=== PATIENT | male | born 1970 | race Caucasian/White ===

== ENCOUNTER 2020-04-28 04:21 | Emergency (ER) | payer SELFPAY ==
[~2020-04-28] VITALS: Ht 165.1 cm; Wt 85.5 kg
--- NOTE | 2020-04-28 04:23 | PHYS DOC ---
Past History Past Medical History: GERD General Adult HPI: HPI: ".. This chest or epigastric pain.. started on night.. about at mid night.. I get GERD.. but.. I did not come in.. because I had lost my insurance....but it not gone away...and worse tonight.. short of breath.. sweaty... " Patient is a 49 year old male who presents with above hx and complaints of chest and epigastric pain. Pain currently in center chest and radiates to left shoulder. Patient rates pain at 8 out of 10. [id number] anti acid meds, Nexium have not helped his pain. Patient denies previous history of cardiac disorder. . Patient does not smoke. Patient does not have a history of hypertension. To his knowledge he has not had elevated cholesterol or lipids. There is a family history of onset of early cardiac disease with grandfather with MS, valve replacement and bypass surgery at age 50. Mother is healthy. No history of recent travel outside the [place] area. No history of trauma. No history of immunosuppression. No history of coagulopathy with him or family members. Patient advised his mother could make medical decisions for him and his case can be discussed with her. Mother informed I was in the process of transferring her son to [facility] for acute MS. She advises she was going to go home and feed his dog - [place]. Review of Systems: Review of Systems: Constitutional: Denies fever or chills Eyes: Denies change in visual acuity HENT: Denies nasal congestion or sore throat Respiratory: Complaints of shortness of breath Cardiovascular: Complaints of chest pain GI: Denies abdominal pain, nausea, vomiting, bloody stools or diarrhea . Complaints of GERD : Denies dysuria Musculoskeletal: Denies back pain or joint pain Integument: Denies rash Neurologic: Denies headache, focal weakness or sensory changes Endocrine: Denies polyuria or polydipsia Lymphatic: Denies swollen glands Psychiatric: Denies depression or anxiety Heart Score: HEART Score for Chest Pain: HEART Score for Chest Pain Response (Comments) Value History Highly Suspicious [address] Depression 2 Age >45 - < 65 1 Risk Factors No Risk Factors 0 Troponin >3 x Normal Limit 2 Total 7 Risk Factors: Risk Factors: DM, Current or recent (<one month) smoker, HTN, HLP, family history of CAD, obesity. Risk Scores: Score 0 - 3: 2.5% MACE over next 6 weeks - Discharge Home Score 4 - 6: 20.3% MACE over next 6 weeks - Admit for Clinical Observation Score 7 - 10: 72.7% MACE over next 6 weeks - Early Invasive Strategies Family History: Family History: Grandfather with cardiac disease-bypass surgery and valve replacement Current Medications: Current Meds: See nursing for home meds Allergies: Allergies: No known drug allergies Physical Exam: PE: Constitutional: in acute distress, non-toxic appearance. [] HENT: Normocephalic, atraumatic, bilateral external ears normal, oropharynx moist, no oral exudates, nose normal. [] Eyes: PERRLA, EOMI, conjunctiva normal, no discharge. [] Neck: Normal range of motion, no tenderness, supple, no stridor. [] Cardiovascular: Bradycardia heart rate regular rhythm, no murmur []. The femoral pulses and radial pulses are equal Lungs & Thorax: Bilateral breath sounds equal at apex with few basilar crackles auscultation []. Chest pain is not reproducible with palpitation. Abdomen: Bowel sounds normal, soft, epigastric tenderness, no masses, no pulsatile masses. [] No history of tarry stools Skin: Warm, diaphoretic, no erythema, no rash. [] Back: No tenderness, no CVA tenderness. [] Extremities: No tenderness, no cyanosis, no clubbing, ROM intact, no edema. [] No cording appreciated. Neurologic: Alert and oriented X 3, normal motor function, normal sensory function, no focal deficits noted. [] Psychologic: Affect anxious, judgement normal, mood normal. [] EKG: EKG: My interpretation of EKG shows a sinus bradycardia rhythm at 58 bpm. Obvious contour abnormality into 3 and aVF consistent with acute MS with contralateral changes . 0426 My interpretation of second EKG at 452 shows sinus bradycardia rhythm at 56. Minimal change and contour abnormalities consistent with acute MS-inferior [] Radiology/Procedures: Radiology/Procedures: [][address] [address] IMAGING REPORT Signed PATIENT: BENJAMIN DAVENPORT ACCOUNT: [id number] : 1970 LOCATION: ER AGE: 49 SEX: M EXAM STATUS: REG ER ORD. PHYSICIAN: KARISSA MALDONADO MD REASON: cp PROCEDURE: CHEST PA & LATERAL EXAM: CHEST PA LATERAL INDICATION: Reason: cp / Spl. Instructions: / History: . TECHNIQUE: PA and lateral views COMPARISON: None FINDINGS: The heart size is normal. The great vessels appear unremarkable. There is no hilar or mediastinal mass. The lungs are clear. There is no pleural effusion or pneumothorax. There are no significant osseous abnormalities. IMPRESSION: No active cardiopulmonary disease. Electronically signed by: Aroldo Pelletier MD (04/28/2020 4:54 AM) [facility] [place]CTATED AND SIGNED BY: AROLDO PELLETIER MD DATE: 04/28/20 0454 CC: KARISSA MALDONADO MD; PCP,NO ~ Course & Med Decision Making: Course & Med Decision Making Pertinent Labs and Imaging studies reviewed. (See chart for details) Patient activated as a STEMI with findings of first EKG. aspirin, nitro paste, Morphiine 2 mg and 4000 units of heparin ordered with drip. Discussed presentation, testing and treatment plan with -hospitalist and Dr. Fisher. Also the emergency department [facility] notified of the transfer of patient to the STEMI lab at [facility]. Emergent transfer by Ambulance was also ordered. Impression: 1. Chest Pain- Acute MS- Consistent Inferior Infarct 2. Accelerated HTN 3. Leukocytosis 12.6 4. Elevated Glucose 139 5. Elevated KAU852/ALT 113 6. CK Elevatede 2887, Trop. 43.848 [] Dragon Disclaimer: Dragon Disclaimer: This electronic medical record was generated, in whole or in part, using a voice recognition dictation system. Departure Departure: Disposition: 01 HOME/RESIDENCE PRIOR TO ADM Condition: STABLE Referrals: PCP,NO (PCP) Justification of Admission: Justification of Admission: Justification of Admission Dx: N/A MS: Acute STEMI Dragon Disclaimer This chart was dictated in whole or in part using Voice Recognition software in a busy, high-work load, and often noisy Emergency Department environment. It may contain unintended and wholly unrecognized errors or omissions. Dragon Disclaimer This chart was dictated in whole or in part using Voice Recognition software in a busy, high-work load, and often noisy Emergency Department environment. It may contain unintended and wholly unrecognized errors or omissions. KARISSA MALDONADO MD Apr 28, 2020 04:23
[2020-04-28] MEDS ORDERED: IV RINGERS SOLUTION,LACTATED 1,000 ML IV SCH (04:30)
--- NOTE | 2020-04-28 04:31 | EKG ---
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
[2020-04-28 04:44] LABS: BASO % 0 % (0-3); EOS % 0 % (0-3); HEMOGLOBIN 17.5 g/dL (13.0-17.5); LYMPH % 8 % (24-48); MEAN CORPUSCULAR HEMOGLOBIN 35 pg (25-35); MEAN CORPUSCULAR HGB CONC 35 g/dL (31-37); MEAN CORPUSCULAR VOLUME 99 fL (79-100); MONO # 1.2 x10^3/uL (0.0-1.1); MONO % 10 % (0-9); NEUT # 10.4 x10^3uL (1.8-7.7); NEUT % 82 % (31-73); PLATELET COUNT 198 x10^3/uL (140-400); RED BLOOD COUNT 5.08 x10^6/uL (4.30-5.70); WHITE BLOOD COUNT 12.6 x10^3/uL (4.0-11.0)
[2020-04-28 04:45] VITALS: BP 163/88
[2020-04-28] MEDS ORDERED: MORPHINE SULFATE 2 MG/ML DISP.SYRIN. IV ONE (04:45)
[2020-04-28] MEDS ORDERED: HEPARIN 25,000UTS/250ML PREMIX 250 ML IV PRN (04:45)
[2020-04-28] MEDS ORDERED: ENOXAPARIN ** NOTE DOSE ** SYRINGE SQ ONE (04:45)
[2020-04-28] MEDS ORDERED: ASPIRIN CHEWABLE 81 MG TABLET. PO ONE (04:45)
[2020-04-28] MEDS ORDERED: HEPARIN for IV BOLUS 10,000 UNIT/10 ML VIAL. IV ONE (04:45)
[2020-04-28] MEDS ORDERED: NITROGLYCERIN OINT 1 GM PACKET. TP ONE (04:45)
[2020-04-28 04:52] LABS: CALCIUM 8.8 mg/dL (8.5-10.1); CREATININE 1.2 mg/dL (0.7-1.3); GFR 64.9; POTASSIUM 4.1 mmol/L (3.5-5.1)
--- NOTE | 2020-04-28 04:56 | RAD ---
EXAM: CHEST PA LATERAL INDICATION: Reason: cp / Spl. Instructions: / History: . TECHNIQUE: PA and lateral views COMPARISON: None FINDINGS: The heart size is normal. The great vessels appear unremarkable. There is no hilar or mediastinal mass. The lungs are clear. There is no pleural effusion or pneumothorax. There are no significant osseous abnormalities. IMPRESSION: No active cardiopulmonary disease. Electronically signed by: Bennett Pelletier MD (04/28/2020 4:54 AM) [facility] [place]
[2020-04-28 05:08] LABS: DIRECT BILIRUBIN 0.5 mg/dL (0.0-0.2); MAGNESIUM 2.4 mg/dL (1.8-2.4); TOTAL PROTEIN 7.8 g/dL (6.4-8.2)
--- NOTE | 2020-04-28 05:46 | EKG ---
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
[2020-04-28 20:22] LABS: THYROID STIM HORMONE (TSH) 2.273 uIU/mL (0.358-3.740)
== END 2020-04-28 05:08 | disposition short-term general hospital (02) ==
LOC: ER 04:21
DX: I21.9 Acute myocardial infarction, unspecified (principal); I10 Essential (primary) hypertension; D72.829 Elevated white blood cell count, unspecified; R73.9 Hyperglycemia, unspecified; R74.8 Abnormal levels of other serum enzymes; K21.9 Gastro-esophageal reflux disease without esophagitis
CPT/HCPCS: 36415; 71046; 80048; 80061; 80076; 82550; 83690; 83735; 83880; 84443; 84484; 85025; 85379; 85610; 85730; 93005; 96365; 96375; 96376; 99285; J1644; J2270; J7120

== ENCOUNTER 2020-05-04 14:08 | Emergency (ER) | payer SELFPAY ==
[~2020-05-04] VITALS: Ht 165.1 cm; Wt 86.0 kg
[2020-05-04] MEDS: IV NORMAL SALINE 1,000ML 1,000 ML IV SCH (14:29)
[2020-05-04 14:30] LABS: BASO # 0.1 x10^3/uL (0.0-0.2); BASO % 1 % (0-3); EOS # 0.2 x10^3/uL (0.0-0.7); EOS % 3 % (0-3); HEMOGLOBIN 15.4 g/dL (13.0-17.5); LYMPH # 1.2 x10^3/uL (1.0-4.8); LYMPH % 18 % (24-48); MEAN CORPUSCULAR HEMOGLOBIN 34 pg (25-35); MEAN CORPUSCULAR HGB CONC 34 g/dL (31-37); MEAN CORPUSCULAR VOLUME 100 fL (79-100); MONO # 0.7 x10^3/uL (0.0-1.1); MONO % 10 % (0-9); NEUT # 4.5 x10^3uL (1.8-7.7); NEUT % 68 % (31-73); PLATELET COUNT 284 x10^3/uL (140-400); RED BLOOD COUNT 4.51 x10^6/uL (4.30-5.70); RED CELL DISTRIBUTION WIDTH 13.5 % (11.5-14.5); WHITE BLOOD COUNT 6.5 x10^3/uL (4.0-11.0)
[2020-05-04] MEDS: ASPIRIN CHEWABLE 81 MG TABLET. PO ONE (14:30)
[2020-05-04 14:36] LABS: CALCIUM 9.2 mg/dL (8.5-10.1); CREATININE 1.4 mg/dL (0.7-1.3); GFR 54.3; POTASSIUM 3.8 mmol/L (3.5-5.1)
--- NOTE | 2020-05-04 14:38 | PHYS DOC ---
Past History Past Medical History: CAD, [place] Past Surgical History: No Surgical History Alcohol Use: None General Adult EDM: Chief Complaint: CHEST PAIN-CARDIAC NATURE HPI: HPI: 49-year-old male presents with chest pain. He had 2 stents placed 6 days ago. He has been doing well until about 90 minutes prior to arrival he started to have a cramping sensation in the right chest radiating into his shoulder blade. This intensified to a 4 out of 10. The patient is diaphoretic, but he states that he is always diaphoretic. Given this pain he decided come to the emergency room. He was not short of breath. On arrival, the patient states that his pain is completely resolved at this time. He denies fever or chills. He has no other complaints at this time. Review of Systems: Review of Systems: Constitutional: Denies fever or chills Eyes: Denies change in visual acuity HENT: Denies nasal congestion or sore throat Respiratory: Denies cough or shortness of breath Cardiovascular: Chest pain GI: Denies abdominal pain, nausea, vomiting, bloody stools or diarrhea : Denies dysuria Musculoskeletal: Denies back pain or joint pain Integument: Denies rash Neurologic: Denies headache, focal weakness or sensory changes Endocrine: Denies polyuria or polydipsia Lymphatic: Denies swollen glands Psychiatric: Denies depression or anxiety Heart Score: HEART Score for Chest Pain: HEART Score for Chest Pain Response (Comments) Value History Moderately Suspicious 1 ECG Nonspecific Repolarizatio 1 Age >45 - < 65 1 Risk Factors >3 Risk Factors or Hx CAD 2 Troponin >1-<3x Normal Limit 1 Total 6 Risk Factors: Risk Factors: DM, Current or recent (<one month) smoker, HTN, HLP, family history of CAD, obesity. Risk Scores: Score 0 - 3: 2.5% MACE over next 6 weeks - Discharge Home Score 4 - 6: 20.3% MACE over next 6 weeks - Admit for Clinical Observation Score 7 - 10: 72.7% MACE over next 6 weeks - Early Invasive Strategies Current Medications: Current Meds: Current Medications Medications (Trade) Dose Ordered Sig/Megha Start Time Stop Time Status Last Admin Dose Admin Aspirin (Aspirin Chewable) 324 mg 1X ONCE 05/04/20 14:30 05/04/20 14:31 DC 05/04/20 14:30 324 MG Sodium Chloride 1,000 ml @ 1,000 mls/hr Q1H 05/04/20 14:18 05/04/20 15:17 05/04/20 14:29 1,000 MLS/HR Allergies: Allergies: Allergies Coded Allergies Type Severity Reaction Last Updated Verified No Known Drug Allergies 05/04/20 No Physical Exam: PE: Constitutional: Well developed, well nourished, no acute distress, non-toxic appearance. [] HENT: Normocephalic, atraumatic, bilateral external ears normal, oropharynx moist, no oral exudates, nose normal. [] Eyes: PERRLA, EOMI, conjunctiva normal, no discharge. [] Neck: Normal range of motion, no tenderness, supple, no stridor. [] Cardiovascular: Heart rate regular rhythm, no murmur [] Lungs & Thorax: Bilateral breath sounds clear to auscultation [] Abdomen: Bowel sounds normal, soft, no tenderness, no masses, no pulsatile masses. [] Skin: Warm, diaphoretic, no erythema, no rash. [] Back: No tenderness, no CVA tenderness. [] Extremities: No tenderness, no cyanosis, no clubbing, ROM intact, no edema. [] Neurologic: Alert and oriented X 3, normal motor function, normal sensory function, no focal deficits noted. [] Psychologic: Affect normal, judgement normal, mood normal. [] Current Patient Data: Labs: Laboratory Tests Test 05/04/20 14:15 White Blood Count 6.5 x10^3/uL (4.0-11.0) Red Blood Count 4.51 x10^6/uL (4.30-5.70) Hemoglobin 15.4 g/dL (13.0-17.5) Hematocrit 45.0 % (39.0-53.0) Mean Corpuscular Volume 100 fL (79-100) Mean Corpuscular Hemoglobin 34 pg (25-35) Mean Corpuscular Hemoglobin Concent 34 g/dL (31-37) Red Cell Distribution Width 13.5 % (11.5-14.5) Platelet Count 284 x10^3/uL (140-400) Neutrophils (%) (Auto) 68 % (31-73) Lymphocytes (%) (Auto) 18 % (24-48) L Monocytes (%) (Auto) 10 % (0-9) H Eosinophils (%) (Auto) 3 % (0-3) Basophils (%) (Auto) 1 % (0-3) Neutrophils # (Auto) 4.5 x10^3uL (1.8-7.7) Lymphocytes # (Auto) 1.2 x10^3/uL (1.0-4.8) Monocytes # (Auto) 0.7 x10^3/uL (0.0-1.1) Eosinophils # (Auto) 0.2 x10^3/uL (0.0-0.7) Basophils # (Auto) 0.1 x10^3/uL (0.0-0.2) Vital Signs: Vital Signs Date Time Temp Pulse Resp B/P (MAP) Pulse Ox O2 Delivery O2 Flow Rate FiO2 05/04/20 14:15 97.8 88 18 139/92 (108) 98 Room Air EKG: EKG: Sinus rhythm, rate 75, normal axis, no ST elevations or depressions, inverted T waves in 2, 3, aVF, V4, V5. [] Radiology/Procedures: Radiology/Procedures: [] Course & Med Decision Making: Course & Med Decision Making Pertinent Labs and Imaging studies reviewed. (See chart for details) Significant for an elevated troponin of 0.9. His EKG does not show ST elevation. I spoke with the banquet captain, Dr. Fisher and he was comfortable with admitting the patient to [place] or [place]. He believes this is likely continued decrease of his very elevated troponin with his recent heart attack. His troponin went up to around 180. Patient is continue to be symptom- free. He does not want to be admitted. I told him admission would be best. He wants to go home and he has an appointment in the morning with his doctor. I negotiated a second troponin after 2 hours. It is slightly lower. The patient understands the risks of going home including . If his pain comes back, he will return to the emergency room. He is stable for discharge at this time. [] Dragon Disclaimer: Dragon Disclaimer: This electronic medical record was generated, in whole or in part, using a voice recognition dictation system. Departure Departure: Impression: Primary Impression: Chest pain Qualified Codes: R07.2 - Precordial pain Disposition: 01 HOME/RESIDENCE PRIOR TO ADM Condition: STABLE Referrals: PCP,NO (PCP) Patient Instructions: Chest Pain Observation Justification of Admission: Justification of Admission: Justification of Admission Dx: N/A MATI LANDRY DO May 04, 2020 14:38
--- NOTE | 2020-05-04 14:42 | EKG ---
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
[2020-05-04 14:48] LABS: ALBUMIN 3.5 g/dL (3.4-5.0); ALBUMIN/GLOBULIN RATIO 0.9 (1.0-1.7); TOTAL BILIRUBIN 0.6 mg/dL (0.2-1.0); TOTAL PROTEIN 7.4 g/dL (6.4-8.2)
--- NOTE | 2020-05-04 14:56 | RAD ---
Single AP view of the chest. Comparison: 04/28/2020. Indication: Chest pain, myocardial infarction week ago Findings: The heart is enlarged but stable. There is no pneumothorax or effusion. No air space or interstitial disease. Impression: 1. No acute cardiopulmonary process. Electronically signed by: Christiano Aquino MD (05/04/2020 2:53 PM) [id number]
[2020-05-04 16:40] VITALS: BP 123/73
== END 2020-05-04 17:07 | disposition home or self-care (01) ==
LOC: ER 14:08
DX: R07.2 Precordial pain (principal); I25.10 Atherosclerotic heart disease of native coronary artery without angina pectoris; I25.2 Old myocardial infarction
CPT/HCPCS: 36415; 71045; 80053; 83880; 84484; 85025; 93005; 99285; J7030

== ENCOUNTER 2021-08-13 09:47 | Inpatient (IN) | payer SELFPAY ==
[~2021-08-13] VITALS: Ht 162.6 cm; Wt 92.3 kg
[2021-08-13] MEDS ORDERED: ASPIRIN CHEWABLE 81 MG TABLET. PO ONE (10:00)
--- NOTE | 2021-08-13 10:09 | RAD ---
AP chest. HISTORY: Short of breath AP view was taken of the chest. Heart is normal in size. There is no pleural effusion. There are no c onfluent infiltrates. IMPRESSION: 1. No acute infiltrates. Electronically signed by: Harry Hunter MD (08/13/2021 10:06 AM) [id number]
--- NOTE | 2021-08-13 10:14 | PHYS DOC ---
Past History Past Medical History: CAD, [place] Past Surgical History: No Surgical History Alcohol Use: None General Adult EDM: Chief Complaint: CHEST PAIN HPI: HPI: 51-year-old male presents with chest pain and shortness of breath. Patient states that he was smoking marijuana with some friends last night, but that it did not feel right. He was able to go sleep. He woke up at 8 AM this morning and felt like he had pain in the bilateral tricep area. This pain radiated up into his chest and he began to feel short of breath and became diaphoretic. He took two baby aspirin and decided to come the emergency room. Patient has two stents from a heart attack 2 years ago. He has not had a stress test or cardiac cath since that time. He is pain-free at this time. Review of Systems: Review of Systems: Constitutional: Denies fever or chills Eyes: Denies change in visual acuity HENT: Denies nasal congestion or sore throat Respiratory: shortness of breath Cardiovascular: Chest pain GI: Denies abdominal pain, nausea, vomiting, bloody stools or diarrhea : Denies dysuria Musculoskeletal: Denies back pain or joint pain Integument: Denies rash Neurologic: Denies headache, focal weakness or sensory changes Endocrine: Denies polyuria or polydipsia Lymphatic: Denies swollen glands Psychiatric: Denies depression or anxiety Current Medications: Current Meds: Current Medications Medications (Trade) Dose Ordered Sig/Megha Start Time Stop Time Status Last Admin Dose Admin Aspirin (Aspirin Chewable) 162 mg 1X ONCE 08/13/21 10:00 08/13/21 10:01 DC Lorazepam (Ativan Inj) 2 mg 1X ONCE 08/13/21 10:00 08/13/21 10:01 DC Allergies: Allergies: Allergies Coded Allergies Type Severity Reaction Last Updated Verified No Known Drug Allergies 05/04/20 No Physical Exam: PE: Constitutional: Well developed, well nourished, mild acute distress, non-toxic appearance. [] HENT: Normocephalic, atraumatic, bilateral external ears normal, oropharynx moist, no oral exudates, nose normal. [] Eyes: PERRLA, EOMI, conjunctiva normal, no discharge. [] Neck: Normal range of motion, no tenderness, supple, no stridor. [] Cardiovascular: Heart rate 100, regular rhythm, no murmur [] Lungs & Thorax: Bilateral breath sounds clear to auscultation [] Abdomen: Bowel sounds normal, soft, no tenderness, no masses, no pulsatile masses. [] Skin: Warm, dry, no erythema, no rash. [] Back: No tenderness, no CVA tenderness. [] Extremities: No tenderness, no cyanosis, no clubbing, ROM intact, no edema. [] Neurologic: Alert and oriented X 3, normal motor function, normal sensory function, no focal deficits noted. [] Psychologic: Affect normal, judgement normal, mood normal. [] Current Patient Data: Labs: Laboratory Tests Test 08/13/21 09:57 Glucose (Fingerstick) 136 mg/dL (70-99) H EKG: EKG: Sinus rhythm, rate one hundred, normal axis, no ST elevation or depression. [] Radiology/Procedures: Radiology/Procedures: [] Impressions: AP chest. HISTORY: Short of breath AP view was taken of the chest. Heart is normal in size. There is no pleural effusion. There are no confluent infiltrates. IMPRESSION: 1. No acute infiltrates. Electronically signed by: Harry Tyler MD (08/13/2021 10:06 AM) [id number] DICTATED AND SIGNED BY: HARRY TYLER MD DATE: 08/13/21 1005 CC: MATI LANDRY DO; PCP,NO ~MTH0 0 Heart Score: C/O Chest Pain: Yes HEART Score for Chest Pain: HEART Score for Chest Pain Response (Comments) Value History Slighlty/Non-Suspicious 0 ECG Nonspecific Repolarizatio 1 Age >45 - < 65 1 Risk Factors >3 Risk Factors or Hx CAD 2 Troponin >3 x Normal Limit 2 Total 6 Risk Factors: Risk Factors: DM, Current or recent (<one month) smoker, HTN, HLP, family history of CAD, obesity. Risk Scores: Score 0 - 3: 2.5% MACE over next 6 weeks - Discharge Home Score 4 - 6: 20.3% MACE over next 6 weeks - Admit for Clinical Observation Score 7 - 10: 72.7% MACE over next 6 weeks - Early Invasive Strategies Course & Med Decision Making: Course & Med Decision Making Pertinent Labs and Imaging studies reviewed. (See chart for details) On arrival the patient was diaphoretic and in mild distress. We gave him two more baby aspirin for a complete dose of aspirin. He was quite shaky and was difficult to get a good EKG. We gave 1 mg of Ativan and this helped significantly. During my interview, he stated he was pain-free. Patient's chest x-ray is negative for acute findings. Her chemistry machine is down so the troponin is by i-STAT. It is 1.10 which is significantly elevated. The pat ient meets criteria for NSTEMI. I will admit the patient to the hospital. Both with Dr. Kearney and he has accepted the patient for admission. I will place the patient on Lovenox treatment. The patient is in agreement with admission. [] Dragon Disclaimer: Dragon Disclaimer: This electronic medical record was generated, in whole or in part, using a voice recognition dictation system. Departure Departure: Impression: Primary Impression: NSTEMI (non-ST elevated myocardial infarction) Disposition: ADMITTED INPATIENT Admitting Physician: Juan Jose Kearney Condition: STABLE Referrals: PCP,HASMUKH (PCP) MATI LANDRY DO Aug 13, 2021 10:14
[2021-08-13 10:23] LABS: POTASSIUM ISTAT 3.8 mmol/L (3.5-5.0)
[2021-08-13 10:25] LABS: BASO # 0.1 x10^3/uL (0.0-0.2); BASO % 1 % (0-3); EOS # 0.2 x10^3/uL (0.0-0.7); EOS % 2 % (0-3); HEMATOCRIT 55.4 % (39.0-53.0); HEMOGLOBIN 18.9 g/dL (13.0-17.5); LYMPH # 3.2 x10^3/uL (1.0-4.8); LYMPH % 38 % (24-48); MEAN CORPUSCULAR HEMOGLOBIN 34 pg (25-35); MEAN CORPUSCULAR HGB CONC 34 g/dL (31-37); MEAN CORPUSCULAR VOLUME 100 fL (79-100); MONO # 1.1 x10^3/uL (0.0-1.1); MONO % 14 % (0-9); NEUT # 3.8 x10^3uL (1.8-7.7); NEUT % 45 % (31-73); PLATELET COUNT 285 x10^3/uL (140-400); RED BLOOD COUNT 5.57 x10^6/uL (4.30-5.70); RED CELL DISTRIBUTION WIDTH 13.3 % (11.5-14.5); WHITE BLOOD COUNT 8.4 x10^3/uL (4.0-11.0)
[2021-08-13] MEDS ORDERED: IV NORMAL SALINE 1,000ML 1,000 ML IV ONE (10:45)
[2021-08-13 11:47] LABS: BACTERIA,URINE 0 /HPF (0-FEW); BILIRUBIN,URINE NEG (NEG); CLARITY,URINE CLEAR; COLOR,URINE YELLOW; GLUCOSE,URINE NEG (NEG); NITRITE,URINE NEG (NEG); RBC,URINE 0 /HPF (0-2); WBC,URINE 0 /HPF (0-4)
[2021-08-13] MEDS ORDERED: ENOXAPARIN ** NOTE DOSE ** SYRINGE SQ ONE ×2 (11:55→12:15)
[2021-08-13] MEDS ORDERED: ACETAMINOPHEN 325 MG TABLET PO PRN (12:00)
[2021-08-13] MEDS ORDERED: MORPHINE SULFATE 2 MG/ML DISP.SYRIN. IVP PRN (12:00)
[2021-08-13] MEDS ORDERED: NITROGLYCERIN SUBLINGUAL 0.4 MG BOTTLE OF 25. SL PRN (12:00)
[2021-08-13] MEDS ORDERED: ONDANSETRON PF 4 MG/2 ML VIAL. IVP PRN (12:00)
[2021-08-13 12:20] LABS: % EOS 1 % (0-5); % LYMPHS 43 % (24-48); % MONOS 8 % (0-10); % SEGS 48 % (35-66); PLT ESTIMATE ADEQUATE (ADEQUATE)
[2021-08-13 13:53] VITALS: BP 95/84
[2021-08-13 15:47] LABS: AMPHETAMINE/METHAMPHETAMINE NEG (NEG); BARBITURATES NEG (NEG); BENZODIAZEPINES NEG (NEG); CANNABINOIDS POS (NEG); COCAINE POS (NEG); METHADONE NEG (NEG); OPIATES NEG (NEG); PHENCYCLIDINE NEG (NEG)
--- NOTE | 2021-08-13 15:53 | PDOC2 ---
CONSULT DOS: DATE: 08/13/21 TIME: 15:53 Reason for Consult: Non-STEMI Referring Physician: Dr. Kearney Chief Complaint Chest pain Source: Chart review, Patient Problem List Problems Medical Problems: (1) NSTEMI (non-ST elevated myocardial infarction) Status: Acute History of Present Illness 51-year-old male with history of coronary artery disease s/p PCI/KIMBERLY to RCA presented with retrosternal chest pressure radiating to both arms and neck associated with mild dyspnea and worse with exertion. He denied any palpitations or syncope. The pain was relieved after he was given aspirin and nitroglycerin in the ED. Past Medical History Coronary artery disease s/p PCI/KIMBERLY to RCA in April 2020 Hypertension Past Surgical History: No pertinent history Family History Hypertension Social History Patient admitted to smoking marijuana and moderate intake of alcohol. He has previous history of cocaine use. Current Medications Current Medications Lorazepam (Ativan Inj) 2 mg 1X ONCE IVP Last administered on 08/13/21at 10:11; Start 08/13/21 at 10:00; Stop 08/13/21 at 10:01; Status DC Aspirin (Aspirin Chewable) 162 mg 1X ONCE PO Last administered on 08/13/21at 10:11; Start 08/13/21 at 10:00; Stop 08/13/21 at 10:01; Status DC Sodium Chloride 1,000 ml @ 1,000 mls/hr 1X ONCE IV Last administered on 08/13at 10:41; Start 08/13/21 at 10:45; Stop 08/13/21 at 11:44; Status DC Enoxaparin Sodium (Lovenox 100mg Syringe) 100 mg 1X ONCE SQ ; Start 08/13/21 at 11:55; Stop 08/13/21 at 11:56; Status DC Ondansetron HCl (Zofran) 4 mg PRN Q4HRS PRN IVP NAUSEA/VOMITING; Start 08/13/21 at 12:00; Stop 08/14/21 at 11:59 Morphine Sulfate (Morphine 2mg Syringe) 2 mg PRN Q2HR PRN IVP PAIN; Start 08/13/21 at 12:00; Stop 08/14/21 at 11:59 Acetaminophen (Tylenol) 650 mg PRN Q4HRS PRN PO FEVER > 100.3'F; Start 08/13/21 at 12:00; Stop 08/14/21 at 11:59 Nitroglycerin (Nitrostat) 0.4 mg PRN Q5MIN PRN SL CHEST PAIN; Start 08/13/21 at 12:00; Stop 08/14/21 at 11:59 Enoxaparin Sodium (Lovenox 100mg Syringe) 90 mg BID SQ ; Start 08/13/21 at 21:00 Enoxaparin Sodium (Lovenox 100mg Syringe) 90 mg 1X ONCE SQ Last administered on 08/13/21at 12:21; Start 08/13/21 at 12:15; Stop 08/13/21 at 12:16; Status DC Allergies: Coded Allergies: No Known Drug Allergies (Unverified , 05/04/20) PSYCHOLOGICAL ROS: No: Hallucinations Eyes: No: Loss of vision HEENT: No: Epistaxis Respiratory: No: Hemoptysis Cardiovascular: yes: Chest Pain Gastrointestinal: No: Vomiting, Diarrhea Neurological: No: Seizures Skin: No: Rash General: Alert, Oriented X3 HEENT: Atraumatic Lungs: Clear to auscultation Heart: Regular rate Abdomen: Soft, No tenderness Extremities: No edema Psych/Mental Status: Mood NL VITALS Vital Signs Date Time Temp Pulse Resp B/P (MAP) Pulse Ox O2 Delivery O2 Flow Rate FiO2 08/13/21 13:53 98.1 97 20 95/84 (88) 95 08/13/21 13:00 Nasal Cannula 2.0 Labs Laboratory Tests Test 08/13/21 09:52 08/13/21 09:57 08/13/21 10:39 08/13/21 11:00 White Blood Count 8.4 x10^3/uL (4.0-11.0) Red Blood Count 5.57 x10^6/uL (4.30-5.70) Hemoglobin 18.9 g/dL (13.0-17.5) Bedside Hemoglobin 19 gm/dL Hematocrit 55.4 % (39.0-53.0) Bedside Hematocrit 56 % Mean Corpuscular Volume 100 fL (79-100) Mean Corpuscular Hemoglobin 34 pg (25-35) Mean Corpuscular Hemoglobin Concent 34 g/dL (31-37) Red Cell Distribution Width 13.3 % (11.5-14.5) Platelet Count 285 x10^3/uL (140-400) Neutrophils (%) (Auto) 45 % (31-73) Lymphocytes (%) (Auto) 38 % (24-48) Monocytes (%) (Auto) 14 % (0-9) Eosinophils (%) (Auto) 2 % (0-3) Basophils (%) (Auto) 1 % (0-3) Neutrophils # (Auto) 3.8 x10^3uL (1.8-7.7) Lymphocytes # (Auto) 3.2 x10^3/uL (1.0-4.8) Monocytes # (Auto) 1.1 x10^3/uL (0.0-1.1) Eosinophils # (Auto) 0.2 x10^3/uL (0.0-0.7) Basophils # (Auto) 0.1 x10^3/uL (0.0-0.2) Segmented Neutrophils % 48 % (35-66) Lymphocytes % 43 % (24-48) Monocytes % 8 % (0-10) Eosinophils % 1 % (0-5) Platelet Estimate Adequate (ADEQUATE) Bedside Sodium 141 mmol/L (135-145) Bedside Potassium 3.8 mmol/L (3.5-5.0) Bedside Chloride 101 mmol/L (98-110) Bedside Total CO2 28 mmol/L (23-32) Anion Gap 17 mmol/L (6-14) Bedside Blood Urea Nitrogen 16 mg/dL (8-26) Bedside Creatinine 1.0 mg/dL (0.5-1.4) Glucose Level 121 mg/dL (60-99) Bedside Ionized Calcium (Catherine) 1.11 mmol/L (1.13-1.32) Bedside Troponin I 1.10 ng/ml (<0.08) Glucose (Fingerstick) 136 mg/dL (70-99) Urine Collection Type Unknown Urine Color Yellow Urine Clarity Clear Urine pH 5.5 Urine Specific [place] 1.020 Urine Protein Neg (NEG-TRACE) Urine Glucose (UA) Neg mg/dL (NEG) Urine Ketones (Stick) Trace mg/dL (NEG) Urine Blood Neg (NEG) Urine Nitrite Neg (NEG) Urine Bilirubin Neg (NEG) Urine Urobilinogen Dipstick 1.0 mg/dL (0.2 mg/dL) Urine Leukocyte Esterase Neg (NEG) Urine RBC 0 /HPF (0-2) Urine WBC 0 /HPF (0-4) Urine Bacteria 0 /HPF (0-FEW) Urine Opiates Screen Neg (NEG) Urine Methadone Screen Neg (NEG) Urine Barbiturates Neg (NEG) Urine Phencyclidine Screen Neg (NEG) Urine Amphetamine/Methamphetamine Neg (NEG) Urine Benzodiazepines Screen Neg (NEG) Urine Cocaine Screen Pos (NEG) Urine Cannabinoids Screen Pos (NEG) Urine Ethyl Alcohol Neg (NEG) SARS-CoV-2 Antigen (Rapid) Negative (NEGATIVE) Test 08/13/21 12:00 08/13/21 15:15 Troponin I High Sensitivity 1683 ng/L (4-75) 2024 ng/L (4-75) Assessment/Plan 1. Acute non-STEMI based on troponin elevations. EKG without acute changes. He is presently chest pain-free. Start heparin infusion per protocol and transfer patient to [facility] for possible cardiac catheterization in the morning. Risks and benefits were explained. 2. Hypertension: Controlled Thank you for your consultation LAURA RIVERA MD Aug 13, 2021 15:53
[2021-08-13 16:00] VITALS: BP 131/84
[2021-08-13 16:08] LABS: ALBUMIN 4.1 g/dL (3.4-5.0); DIRECT BILIRUBIN 0.1 mg/dL (0.0-0.2); TOTAL BILIRUBIN 0.8 mg/dL (0.2-1.0)
--- NOTE | 2021-08-13 16:20 | SSS ---
DATE OF SERVICE: 08/13/2021 ADMIT DATE: 08/13/2021 HISTORY OF PRESENT ILLNESS: The patient is a 51-year-old male patient who presented to the Emergency Room of [facility] with a complaint of chest pain and shortness of breath. He woke up at around 8:00 and around 8:30, he was smoking marijuana with some friends last night, but did not feel right. He was able to go to sleep and he woke up around 8:00 a.m. this morning and felt like he had pain in the bilateral triceps area. This pain radiated up into his chest and he began to feel short of breath and became diaphoretic. He took 2 baby aspirin and decided to come to the Emergency Room. He rated his pain around about 8/10 in severity. It lasted till he arrived to the Emergency Room where he was investigated. He had an EKG that did not show any ST segment elevation and his first set of cardiac enzymes showed troponin to be 1.1. The troponin I high sensitivity was 1683. He was started on Lovenox and given morphine as well as nitroglycerin as well as aspirin and he did actually very well and his pain has completely subsided as well as the diaphoresis and shortness of breath. PAST MEDICAL HISTORY: Significant for coronary artery disease status post myocardial infarction, status post stent deployment x 2. He is also known to have hypertension. PAST SURGICAL HISTORY: Significant for coronary angioplasty and stent deployment. ALLERGIES: He has no known drug allergies. MEDICATIONS: Unknown to him and we are contacting the [facility]. Apparently, he is on metoprolol, omeprazole, prasugrel and atorvastatin. FAMILY HISTORY: He has one brother who is younger and has hypertension and nephrolithiasis. Father in his 40s due to esophageal cancer. Mother is still alive at age of 67 and has lung disease. SOCIAL HISTORY: He is single, never , has no children. Smokes marijuana. Drinks alcohol 3 times a week. Works at the [employer]. REVIEW OF SYSTEMS: As per history of present illness. PHYSICAL EXAMINATION: GENERAL: On arrival to the Emergency Room, he was somewhat tachypneic, tachycardic, but there is no pallor, jaundice, cyanosis, no lymphadenopathy, no thyromegaly, no jugular venous distention. No lower limb edema. HEAD, EYES, EARS, NOSE, AND THROAT: Normocephalic, atraumatic. NECK: Supple. HEART: Normal first and second heart sounds. No gallop, rub or murmur. CHEST: Clear to auscultation. No crepitation or rhonchi. ABDOMEN: Distended, soft, nontender. NEUROLOGIC: He was grossly intact. LABORATORY DATA: Showed his white cell count was 8400, hemoglobin 18.9, hematocrit 55, MCV 100 and platelet count of 285,000 with a manual differential showed 45% polymorphs, 38% lymphocytes, 14% monocytes. His chemistry showed a serum sodium 141, potassium 3.8, chloride 101, bicarbonate 28, anion gap of 17, BUN 16, creatinine 1, glucose was 121. Ionized calcium was 1.11. Troponin I was 1.1. The second troponin with high sensitivity was 1683. His toxic screen was positive for cocaine and cannabinoids. His urinalysis essentially unremarkable and his coronavirus rapid testing was negative. His chest x-ray was unremarkable. ASSESSMENT AND PLAN: The patient was transferred to [facility] with diagnosis of non-ST segment elevation myocardial infarction, previous history of coronary artery disease status post angioplasty and stent deployment as well as hypertension and hyperlipidemia. KYLE/TANIA DR: Reginald TID: [id number]
--- NOTE | 2021-08-13 20:50 | EKG ---
[address] [address] Test Date: 2021-08-13 Test Time: 09:52:18 Pat Name: BENJAMIN DAVENPORT Department: Room: 113 A Gender: M Engineering Executive: EMMA : [id number] Requested By: MATI LANDRY Order Number: [id number] Reading MD: Puma Fisher MD Measurements Intervals [place] Rate: 100 P: 44 OK: 128 QRS: 22 QRSD: 94 T: 133 QT: 358 QTc: 465 Interpretive Statements SINUS RHYTHM LEFT ATRIAL ABNORMALITY LVH WITH REPOLARIZATION ABNORMALITY QRS(T) CONTOUR ABNORMALITY CONSISTENT WITH INFERIOR INFARCT PROBABLY OLD ABNORMAL ECG Electronically Signed On 08-14-2021 8:57:55 GLASS TECHNICIAN/INSTALLER by Puma Fisher MD
[2021-08-13] MEDS ORDERED: ENOXAPARIN ** NOTE DOSE ** SYRINGE SQ SCH (21:00)
== END 2021-08-13 16:20 | disposition short-term general hospital (02) | DRG 282 ==
LOC: ER 09:47 → 1 SOUTH 11:49
PROVIDERS: ADMIT Internal Medicine; ATTEND Internal Medicine
DX: I21.4 Non-ST elevation (NSTEMI) myocardial infarction (principal); I25.2 Old myocardial infarction; F12.90 Cannabis use, unspecified, uncomplicated; E78.5 Hyperlipidemia, unspecified; I10 Essential (primary) hypertension; I25.10 Atherosclerotic heart disease of native coronary artery without angina pectoris; F14.90 Cocaine use, unspecified, uncomplicated; Z95.5 Presence of coronary angioplasty implant and graft; Z82.49 Family history of ischemic heart disease and other diseases of the circulatory system; Z80.0 Family history of malignant neoplasm of digestive organs
CPT/HCPCS: 36415; 71045; 80047; 80076; 80307; 81001; 82947; 84484; 85007; 85025; 87426; 93005; 96361; 96372; 96374; J1650; J2060; U0003; 99285-25; J7030